=== PATIENT | female | born 1985 | race Caucasian/White ===

== ENCOUNTER 2018-02-12 21:45 | Outpatient (CLI) | payer OTHER ==
[2018-02-12 22:36] VITALS: BP 119/77; PULSE 93; RESP 16; TEMP 98.8
--- NOTE | 2018-03-03 09:35 | P.MSEPDOC ---
Presenting Problems - Arrival Data Date of Arrival on Unit: 02/12/18 Time of Arrival on Unit: 21:45 Mode of Transport: Ambulatory - Complaint OB-Reason for Admission/Chief Complaint: Possible Onset of Labor Comment: 1800 contractions every 2-6 minutes Medical History - Information : 4 Para: 3 Term: 3 : 0 Abortions: Spontaneous or Elective: 0 Number of Living Children: 3 - Gestational Age Gestational Age by JOHANNY (wks/days): 38 Weeks and 2 Days Review of Systems - Review of Systems Constitutional: No problems Breast: No problems ENT: No problems Cardiovascular: No problems Respiratory: No problems Gastrointestinal: No problems Genitourinary: No problems Musculoskeletal: No problems Neurological: No problems Skin: No problems Vital Signs - Temperature Temperature: 98.8 F Temperature Source: Temporal Artery Scan - Pulse Right Brachial Pulse Rate: 93 Pulse Assessment Method: Automatic Cuff - Respirations Respiratory Rate: 16 Oxygen Delivery Method: Room Air O2 Sat by Pulse Oximetry: 98 - Blood Pressure Right Arm Blood Pressure: 119/77 Blood Pressure Mean: 91 Blood Pressure Source: Automatic Cuff Medical Screen Scoring (Pre) - Cervical Exam Dilation: 1-3 cm = 1 Effacement: More than 50% = 2 Membranes: Intact - Uterine Contractions Frequency: > or = 36 weeks =2 Duration: N/A Intensity: N/A - Maternal Vital Signs Maternal Temperature: N/A Maternal Blood Pressure: N/A Signs of Preeclampsia: N/A - Pain Assessment Pain Location and Character: Abdomen Pain Scale Used: Numeric (1 - 10) Pain Intensity: 4 Pain Management Goal: 0 Pain Description: *Acute, Cramping Pain Radiation Location: no Pain Frequency: Intermittent Pain Duration: 4 Pain Duration Units: Hours Pain Behavior: Vocalization Pain Aggravating Factors: Contractions - Assessment Baseline FHR: 135 Heart Rate - NICHD Category: Category I (Normal) = 0 NST: Reactive - Total Score Total Score (Pre): 5 - Level of Risk Level of Risk: Low (0-5) Medical Screen Scoring (Post) - Cervical Exam Dilation: 1-3 cm = 1 Effacement: More than 50% = 2 Membranes: Intact - Uterine Contractions Frequency: > or = 36 weeks =2 Duration: N/A Intensity: N/A - Total Score Total Score (Post): 5 - Post Treatment Level of Risk Post Treatment Level of Risk: Low (0-5) Physician Notification (Post) - Physician Notified Physician Notified Date: 02/13/18 Physician Notified Time: 00:07 Spoke With: Timothy New Order Received: No - Notification Comment Comment: No cervical change after pt ambulaing in hallways, d/c home, follow up 02/14/[address] Ortega. Disposition - Disposition OB Disposition: Discharge to home, Written follow up instructions reviewed Discharge Date: 02/13/18 Discharge Time: 00:10 I agree with the RN Medical Screening Exam: Yes Risk & Benefit of care provided described in d/c instruction: Yes Diagnosis: FALSE LABOR AT OR AFTER 37 COMPLETED WEEKS OF GESTATION
== END 2018-02-13 00:10 | disposition home or self-care (01) ==
LOC: FBPOP 21:45
PROVIDERS: ATTEND Obstetrics & Gynecology Obstetrics
DX: O47.1 False labor at or after 37 completed weeks of gestation (principal); Z3A.38 38 weeks gestation of pregnancy
CPT/HCPCS: 59025; 99213

== ENCOUNTER 2018-02-20 06:00 | Inpatient (IN) | payer OTHER ==
[2018-02-20] MEDS ORDERED: OXYTOCIN 10 UNIT/ML 1 ML VIAL IM PRN (06:56)
[2018-02-20] MEDS ORDERED: LIDOCAINE 0.5% (PF) 5 MG/ML (50 ML SDV) SQ PRN (06:56)
[2018-02-20] MEDS ORDERED: METHYLERGONOVINE 0.2 MG/ML 1 ML AMP IM PRN (06:56)
[2018-02-20] MEDS ORDERED: TERBUTALINE 1 MG/ML VIAL SQ PRN (06:56)
[2018-02-20] MEDS ORDERED: CARBOPROST TROMETHAMINE 250 MCG/ML 1 ML AMP IM PRN (06:56)
[2018-02-20 07:13] LABS: Anisocytosis Slight; Basophils % (A) 1 %; Eosinophils # (A) 0.1 k/uL (0-0.7); Eosinophils % (A) 1 %; HCT 38.1 % (34.0-46.0); HGB 12.1 gm/dL (11.4-16.0); Lymphocytes # (A) 1.6 k/uL (1.0-4.8); Lymphocytes % (A) 25 %; MCH 30.8 pg (25.0-35.0); MCHC 31.7 g/dL (31.0-37.0); MCV 97.1 fL (80.0-100.0); Macrocytosis Slight; Mean Platelet Volume 8.4; Monocytes # (A) 0.6 k/uL (0-1.0); Monocytes % (A) 9 %; Neutrophils # (A) 3.9 k/uL (1.3-7.7); Neutrophils % (A) 61 %; Platelet Count 158 k/uL (150-450); RBC 3.93 m/uL (3.80-5.40); RDW 16.2 % (11.5-15.5); WBC 6.4 k/uL (3.8-10.6)
[2018-02-20 07:24] VITALS: BMI 28.6
[2018-02-20] MEDS: LACTATED RINGERS 1,000 ML IV SCH ×4 (07:26→23:57)
[2018-02-20] MEDS: OXYTOCIN 20 UNITS/1000 ML NS 1,000 ML IV SCH ×2 (07:40→21:48)
[2018-02-20] MEDS ORDERED: BUTORPHANOL 1 MG/ML 1 ML VIAL IV PRN (08:41)
--- NOTE | 2018-02-20 08:46 | P.HPOB ---
History of Present Illness H&P Date: 02/20/18 Chief Complaint: 39+ weeks, favorable cervix, elective induction The patient is a 32-year-old 4 para 3003 admitted at 39-3/7 weeks as established by last menstrual period and confirmed by 8 week ultrasound. She is admitted for elective induction with all signs reassuring and a favorable cervix. Her has been entirely uncomplicated and group B strep status is negative. She does have a relatively large for gestational age fetus based upon a roughly 36 week ultrasound at which time the infant was at approximately the 93rd percentile. Obstetrical history: 4 para 3003 with 3 term vaginal deliveries without complications. Current statistics are listed in history present illness. EDC of 02/24/2018 was established by last menstrual period and confirmed by 8 week ultrasound. Laboratory workup demonstrates a blood type of AB+ with a negative antibody screen. Rubella status is immune. Remainder of the laboratory workup was within normal limits. One hour Glucola was normal and group B strep status is negative. Gynecologic history: Unremarkable with no history of infections to include STDs. Review of Systems Review of systems is confined to history of present illness. Past Medical History Past Medical History: Supraventricular Tachycardia (SVT) Additional Past Medical History / Comment(s): pt states she has had 3 attacks of SVT in last ten years History of Any Multi-Drug Resistant Organisms: None Reported Past Surgical History: Tonsillectomy Past Anesthesia/Blood Transfusion Reactions: No Reported Reaction Past Psychological History: No Psychological Hx Reported Smoking Status: Never smoker Past Alcohol Use History: None Reported Past Drug Use History: None Reported - Past Family History Mother Family Medical History: No Reported History Medications and Allergies Home Medications Medication Instructions Recorded Confirmed Type Ferrous Sulfate, Dried [Iron] 1 tab PO ONCE 02/12/18 02/20/18 History Pnv No.95/Ferrous Fum/Folic AC 1 tab PO ONCE 02/12/18 02/20/18 History [ Multivitamin Tablet] Ranitidine HCl [Zantac] 1 tab PO ONCE 02/12/18 02/20/18 History Allergies Allergy/AdvReac Type Severity Reaction Status Date / Time adhesive tape Allergy Rash/Hives Verified 02/20/18 06:55 Exam Vital Signs Temp Pulse Resp BP 02/20/18 06:55 96.9 F L 83 14 110/74 Intake and Output 02/19/18 02/20/1802/20/18 22:59 06:59 14:59 Other: Weight 75.75 kg In general, this is a well-developed, well-nourished white female in no acute distress. Her heart has a regular rhythm and rate without murmur. Her lungs are clear to auscultation bilaterally in all [place]. Her abdomen is gravid, nondistended, has normal active bowel sounds, is soft, nontender, and without any palpable masses aside from uterine fundus. Her extremities are without any cyanosis, clubbing, or significant edema and are nontender to palpation bilaterally. Digital cervical examination on straights her surgery 3 cm dilated , 50% effaced, the vertex in presentation at -3 station. Artificial rupture of membranes is carried out demonstrating clear fluid. Results Result Diagrams: 02/20/18 07:00 Abnormal Lab Results - Last 24 Hours (Table) 02/20/18 Range/Units 07:00 RDW 16.2 H (11.5-15.5) % Assessment and Plan (1) 39 weeks gestation of Current Visit: Yes Status: Acute Code(s): Z3A.39 - 39 WEEKS GESTATION OF SNOMED Code(s): 75845840 Plan: The patient has been admitted for elective induction of labor with a favorable cervix after 39 weeks. She has had Pitocin augmentation started and artificial rupture of membranes carried out. She will have close maternal and surveillance and expectant management will be practiced. She is a good candidate for either IV or epidural analgesia, whichever she may choose.
[2018-02-20] MEDS ORDERED: ROPIVACAINE 5MG/ML 20ML VIAL ONE (11:26)
[2018-02-20] MEDS ORDERED: SODIUM CHLORIDE 0.9% 100 ML BAG ONE (11:26)
[2018-02-20] MEDS ORDERED: fentaNYL (PF) 50 MCG/ML 5 ML AMP ONE (11:26)
[2018-02-20] MEDS ORDERED: KETOROLAC 30 MG/ML 1 ML VIAL ONE (18:21)
[2018-02-20] MEDS ORDERED: PHENYLEPHRINE-0.9% NACL SYG 1 MG/10 ML SYRINGE ONE (18:21)
[2018-02-20] MEDS ORDERED: ONDANSETRON 4 MG/2 ML VIAL ONE (18:21)
[2018-02-20] MEDS ORDERED: OXYTOCIN 10 UNIT/ML 1 ML VIAL ONE (18:21)
[2018-02-20] MEDS ORDERED: SIMETHICONE 80 MG CHEWABLE PO PRN (19:16)
[2018-02-20] MEDS ORDERED: ZOLPIDEM 5 MG TAB PO PRN (19:16)
[2018-02-20] MEDS ORDERED: diphenhydrAMINE 50 MG/ML 1 ML VIAL IVP PRN ×2 (19:16)
[2018-02-20] MEDS ORDERED: ONDANSETRON 4 MG/2 ML VIAL IVP PRN (19:16)
[2018-02-20] MEDS ORDERED: diphenhydrAMINE 25 MG CAP PO PRN (19:16)
[2018-02-20] MEDS ORDERED: METOCLOPRAMIDE 5 MG/ML 2 ML VIAL IVP PRN (19:16)
[2018-02-20] MEDS ORDERED: ACETAMINOPHEN TAB 325 MG TAB PO PRN (19:16)
[2018-02-20] MEDS ORDERED: LANOLIN CREAM 5 GM TUBE TOPICAL PRN (19:16)
[2018-02-20] MEDS ORDERED: diphenhydrAMINE 50 MG CAP PO PRN (19:16)
[2018-02-20] MEDS ORDERED: NALOXONE 0.4 MG/ML 1 ML VIAL IV PRN ×2 (19:16→19:38)
--- NOTE | 2018-02-20 19:26 | P.OP ---
Date of Procedure: 02/20/18 Preoperative Diagnosis: #1. 39-3/7 weeks, suspected macrosomia #2. Arrest of dilation and descent #3. Suspected malposition Postoperative Diagnosis: Same plus #4. Left occiput posterior position Procedure(s) Performed: Primary low-transverse section Anesthesia: spinal Surgeon: Ubaldo Ortega Health Inspector Food #1: Janet Gifford Estimated Blood Loss (ml): 700 IV fluids (ml): 1,000 Urine output (ml): 200 Pathology: none sent Condition: stable Disposition: floor Operative Findings: Preoperatively, the patient had remained at rim dilation for approximately 4-5 hours with no descent below approximately -1 station. The position was felt to be occiput posterior and attempts to push past the remaining cervix were unsuccessful. Ultimately, the decision was made to proceed to the operating room where a primary low transverse section was carried out. She was delivered of a viable 9 lbs. 8 oz. baby boy with Apgars of 8 at 1 minute and 9 at 5 minutes delivered in the left occiput posterior position. The placenta was delivered manually, intact, and grossly normal with a grossly normal three-vessel cord. The uterus, tubes, and ovaries were entirely normal to inspection the lower uterine segment was very soft and easily torn. Description of Procedure: The patient was prepped and draped in usual fashion after spinal anesthesia was administered by the anesthesiologist. A Pfannenstiel incision was made and extended into the abdominal cavity without difficulty. The bladder peritoneum was elevated, incised, and reflected distally. A 2 cm incision was made in the lower uterine segment to enter the uterus at which time clear fluid was further noted. The incision was extended in both directions using the bandage scissors. The head was encountered deep within the pelvis in the left occiput posterior position. It was elevated up and through the incision where the nose and mouth were thoroughly suctioned. The cord was doubly clamped, cut , and the infant passed resuscitative measures with weight and Apgars as noted above. The placenta was delivered manually and intact as noted above. The uterus was exteriorized and the interior cavity of the uterus swept of any remaining placental or membranous fragments. The margins of the incision were grasped with Pratt clamps and it was noted to of extended to some extent in both corners. The incision was closed in 2 layers, the first layer being a running locking stitch of 0 chromic catgut from margin to margin followed by a running imbricating layer of 0 chromic catgut from margin to margin. There was some ongoing bleeding at the left angle of the incision which was made hemostatic with 2 [id number] stitches of 0 chromic catgut. There also appeared to be a small hematoma forming at the right angle above the incision which was also made hemostatic with a wide [id number] stitch of 0 chromic catgut. Following this, hemostasis appeared to be excellent. The posterior cul -de-sac was suctioned using a guard and the uterine and ovarian findings were normal as noted above. The uterus was replaced within the abdominal cavity and the gutters swept of any remaining blood, fluid, or clot. The incision was reexamined and noted to be hemostatic. The bladder peritoneum was loosely reapproximated as was the parietal peritoneum. The layer of muscles was examined and found to be hemostatic. The fascia was closed with 2 running stitches of 0 Vicryl proceeding from lateral margins to the midpoint. The subcutaneous tissues were irrigated, made hemostatic with the Bovie, and not closed with a stitch as they were less than 2 cm in depth. The skin was reapproximated with a running subcuticular stitch of 4-0 Vicryl proceeding from margin to margin followed by half-inch Steri-Strips placed with Mastisol. Estimated blood loss for the case was approximate 700 mL. There were no complications. All sponge, instrument, and needle counts were correct. Both mother and are resting comfortably in recovery.
[2018-02-20] MEDS ORDERED: OXYTOCIN 20 UNITS/1000 ML NS 1,000 ML IV SCH (19:30)
[2018-02-20] MEDS ORDERED: NALBUPHINE 10 MG/ML VIAL (10ML MDV) IV PRN (19:38)
[2018-02-20] MEDS ORDERED: HYDROmorphone 0.5 MG/0.5 ML SYRINGE IVP PRN (19:38)
[2018-02-20] MEDS ORDERED: PRENATAL VIT-IRON-FOLIC ACID 1 EACH CAP PO ONE (19:45)
[2018-02-20] MEDS ORDERED: FERROUS SULFATE 325 MG TAB PO ONE (19:45)
[2018-02-20] MEDS ORDERED: FAMOTIDINE 20 MG TAB PO ONE (19:45)
[2018-02-20] MEDS ORDERED: HYDROmorphone 1 MG/ML 1 ML SYRINGE IVP PRN (19:47)
[2018-02-20] MEDS: SENNOSIDES-DOCUSATE SODIUM 1 EACH TAB PO SCH (20:47)
[2018-02-20] MEDS: KETOROLAC 30 MG/ML 1 ML VIAL IVP PRN (22:35)
[2018-02-21] MEDS: LACTATED RINGERS 1,000 ML IV SCH ×3 (04:11→22:27)
[2018-02-21] MEDS: KETOROLAC 30 MG/ML 1 ML VIAL IVP PRN ×3 (07:08→18:28)
--- NOTE | 2018-02-21 08:53 | P.PNOBGPC ---
Subjective - Subjective Patient reports: Reports appetite normal, Reports voiding normally, Reports pain well controlled, Reports ambulating normally : doing well Objective - Vital Signs Latest vital signs: Vital Signs Temp Pulse Resp BP Pulse Ox 02/21/18 08:00 98.2 F 74 16 101/64 99 02/21/18 06:00 16 02/21/18 04:00 98.4 F 78 16 101/65 98 02/21/18 02:00 16 02/20/18 23:55 98 02/20/18 23:49 97.9 F 80 16 109/65 02/20/18 22:38 16 02/20/18 22:00 86 112/70 02/20/18 21:20 86 16 112/60 99 02/20/18 20:48 100 16 107/60 98 02/20/18 20:31 16 98 02/20/18 20:18 97.5 F L 95 16 121/60 98 02/20/18 20:05 97.8 F 95 16 99/58 98 02/20/18 19:50 77 16 99/65 100 02/20/18 19:38 16 100 02/20/18 19:31 97.0 F L 16 100/61 100 02/20/18 19:20 98.8 F 79 16 91/55 100 Intake and Output 02/20/18 02/21/18 02/21/18 22:59 06:59 14:59 Intake Total 1042.4 500 Output Total 1000 1000 Balance 42.4 -500 Intake: IV 1000 500 Oxytocin 20 Units/1000 ml 500 Ns 1,000 ml @ 1 MILLIUNIT/MIN 3 mls/hr IV .Q24H WARREN Rx#:[id number] Intake, IV Titration 42.4 Amount Oxytocin 20 Units/1000 ml 42.4 Ns 1,000 ml @ 1 MILLIUNIT/MIN 3 mls/hr IV .Q24H WARREN Rx#:[id number] Output: Urine 1000 1000 Uretheral (Betancourt) 500 Other: Voiding Method Indwelling Catheter Indwelling Catheter # Voids 1 - Exam Extremities: Present: normal Abdomen: Present: normal appearance, soft. Absent: distention, tenderness Incision: Present: normal, dry, intact Uterus: Present: normal, firm (The uterine fundus as tonic and nontender just above the umbilicus.) Assessment and Plan (1) 39 weeks gestation of Current Visit: Yes Status: Acute Code(s): Z3A.39 - 39 WEEKS GESTATION OF SNOMED Code(s): 85203842 (2) Arrest of dilation, delivered, current hospitalization Current Visit: Yes Status: Acute Code(s): O62.1 - SECONDARY UTERINE INERTIA SNOMED Code(s): 55271602 (3) Arrest of descent, delivered, current hospitalization Current Visit: Yes Status: Acute Code(s): O62.1 - SECONDARY UTERINE INERTIA SNOMED Code(s): 77790701 (4) Status post section Current Visit: Yes Status: Acute Code(s): Z98.891 - HISTORY OF UTERINE SCAR FROM PREVIOUS SURGERY SNOMED Code(s): 637577631 Plan: Continue routine post operative care. I have encouraged patient to ambulating in the halls routinely. She is otherwise performing all activities of daily living at this time. Possible discharge home tomorrow pending any problems or complications.
[2018-02-21 09:33] LABS: Anisocytosis Slight; Basophils % (A) 0 %; Eosinophils # (A) 0.1 k/uL (0-0.7); Eosinophils % (A) 1 %; HCT 28.9 % (34.0-46.0); Lymphocytes # (A) 1.1 k/uL (1.0-4.8); Lymphocytes % (A) 9 %; MCH 31.7 pg (25.0-35.0); MCHC 32.5 g/dL (31.0-37.0); MCV 97.5 fL (80.0-100.0); Macrocytosis Slight; Mean Platelet Volume 8.3; Monocytes # (A) 0.6 k/uL (0-1.0); Monocytes % (A) 4 %; Neutrophils # (A) 11.2 k/uL (1.3-7.7); Neutrophils % (A) 85 %; Platelet Count 151 k/uL (150-450); RBC 2.97 m/uL (3.80-5.40); RDW 16.1 % (11.5-15.5); WBC 13.1 k/uL (3.8-10.6)
[2018-02-21 09:43] LABS: HGB 9.4 gm/dL (11.4-16.0)
[2018-02-21] MEDS: SENNOSIDES-DOCUSATE SODIUM 1 EACH TAB PO SCH ×2 (11:13→19:59)
--- NOTE | 2018-02-21 14:11 | P.PN ---
Progress Note - Text 02/21 740am 32 yr old female s/p csection.pod #1 .vas of 4, c/o mild nausea and pruritis. feeling better today.
[2018-02-21] MEDS: HYDROcodone/APAP 5-325MG 1 EACH TAB PO PRN (21:37)
[2018-02-21 22:25] VITALS: RESP 16
[2018-02-22] MEDS: IBUPROFEN 600 MG TAB PO PRN ×4 (00:26→18:40)
[2018-02-22] MEDS: HYDROcodone/APAP 5-325MG 1 EACH TAB PO PRN (03:33)
--- NOTE | 2018-02-22 08:28 | P.PNOBGPC ---
Subjective - Subjective Patient reports: Reports appetite normal, Reports voiding normally, Reports pain well controlled, Reports ambulating normally : doing well Objective - Vital Signs Latest vital signs: Vital Signs Temp Pulse Resp BP Pulse Ox 02/22/18 00:00 97.7 F 95 16 108/66 02/21/18 20:00 98.6 F 96 16 106/59 02/21/18 16:00 97.9 F 82 14 101/60 02/21/18 14:00 98.1 F 84 14 89/53 98 02/21/18 10:00 97.9 F 68 14 103/53 Intake and Output 02/21/18 02/22/18 02/22/18 22:59 06:59 14:59 Other: # Voids 1 - Exam Extremities: Present: normal Abdomen: Present: normal appearance, soft. Absent: distention, tenderness Incision: Present: normal, dry, intact Uterus: Present: normal, firm (The uterine fundus as tonic and nontender at the umbilicus.) - Labs Labs: Abnormal Lab Results - Last 24 Hours (Table) 02/21/18 Range/Units 08:46 WBC 13.1 H (3.8-10.6) k/uL RBC 2.97 L (3.80-5.40) m/uL Hgb 9.4 L D (11.4-16.0) gm/dL Hct 28.9 L (34.0-46.0) % RDW 16.1 H (11.5-15.5) % Neutrophils # 11.2 H (1.3-7.7) k/uL Assessment and Plan (1) 39 weeks gestation of Current Visit: Yes Status: Acute Code(s): Z3A.39 - 39 WEEKS GESTATION OF SNOMED Code(s): 74798973 (2) Arrest of dilation, delivered, current hospitalization Current Visit: Yes Status: Acute Code(s): O62.1 - SECONDARY UTERINE INERTIA SNOMED Code(s): 28758714 (3) Arrest of descent, delivered, current hospitalization Current Visit: Yes Status: Acute Code(s): O62.1 - SECONDARY UTERINE INERTIA SNOMED Code(s): 80279980 (4) Status post section Current Visit: Yes Status: Acute Code(s): Z98.891 - HISTORY OF UTERINE SCAR FROM PREVIOUS SURGERY SNOMED Code(s): 909967039 Plan: Continue routine postoperative care. The patient has requested to remain in the hospital another day and will likely be discharged home tomorrow. Again I have encouraged her to amulet in the hallways at least 4 times daily.
[2018-02-22] MEDS: SENNOSIDES-DOCUSATE SODIUM 1 EACH TAB PO SCH ×2 (09:42→20:41)
[2018-02-22] MEDS: HYDROcodone/APAP 7.5-325MG 1 EACH TAB PO PRN ×3 (09:43→20:41)
[2018-02-23] MEDS: IBUPROFEN 600 MG TAB PO PRN ×2 (02:15→07:47)
[2018-02-23] MEDS: HYDROcodone/APAP 7.5-325MG 1 EACH TAB PO PRN ×2 (05:00→12:16)
[2018-02-23] MEDS: SENNOSIDES-DOCUSATE SODIUM 1 EACH TAB PO SCH (07:47)
[2018-02-23 09:34] VITALS: BP 112/68; PULSE 82; TEMP 98.2
--- NOTE | 2018-02-23 11:03 | P.DS ---
Providers Date of admission: 02/20/18 06:48 Expected date of discharge: 02/23/18 Attending physician: Ubaldo Ortega Primary care physician: Stated None - Discharge Diagnosis(es) (1) 39 weeks gestation of Current Visit: Yes Status: Acute (2) Arrest of dilation, delivered, current hospitalization Current Visit: Yes Status: Acute (3) Arrest of descent, delivered, current hospitalization Current Visit: Yes Status: Acute (4) Status post section Current Visit: Yes Status: Acute Hospital Course: The patient is a 32-year-old 4 para 3003 admitted at 39-3/7 weeks by good dating parameters for an elective induction with all signs reassuring and a very favorable cervix. Her was uncomplicated and group B strep status is negative. She was known to have a large for gestational age fetus based upon late third trimester ultrasound. On labor and delivery, she had Pitocin augmentation started and underwent artificial rupture of membranes for clear fluid. She made progress and had an epidural catheter placed for analgesia. She continued to progress until she reached approximately 9 cm to a rim dilation. She remained at that dilation for approximately 4-5 hours and was unable to push past the cervix or bring the fetus any lower than approximately 0 station. The fetus was thought to be in an occiput posterior position. Given all these findings, the patient was counseled and taken the operating room for a primary low transverse section where she was delivered of a viable 9 lbs. 8 oz. baby boy with Apgars of 8 at 1 minute and 9 at 5 minutes delivered in the occiput posterior position. Her postoperative course was unremarkable with vital signs remaining stable and her temperature was afebrile throughout. She was deemed stable for discharge on postoperative day #3 was discharged home to follow-up in the office in 2 weeks for an incision check and 6 weeks routinely. Discharge instructions included calling for any significantly increased bleeding or foul-smelling lochia, significantly increased fever abdominal pain, perineal complaints, breast complaints, incisional complaints, or anything else that concerned her. She was additionally instructed to have nothing in the vagina for at least 6 weeks time to include intercourse and to abstain from any heavy lifting over the same period of time. She was last instructed to do no driving until off of all pain medications or 2 weeks' time, whichever came first. She understood her instructions and agrees to follow up as noted above. Discharge medications included continued vitamins as she has opted to breast-feed as well as a prescription for [place] 5/325 mg 1-2 by mouth every 6 hours when necessary pain , #20 dispensed with no refills. Maternal blood type is AB+ and rubella status is immune. Discharge hemoglobin and hematocrit were 9.4 and 28.9 respectively. Procedures: #1. Pitocin induction #2. Artificial rupture of membranes #3. Epidural analgesia #4. Primary low-transverse section Patient Condition at Discharge: Stable Plan - Discharge Summary New Discharge Prescriptions: No Action Ranitidine HCl [Zantac] 1 tab PO ONCE Pnv No.95/Ferrous Fum/Folic AC [ Multivitamin Tablet] 1 tab PO ONCE Ferrous Sulfate, Dried [Iron] 1 tab PO ONCE Discharge Medication List Ferrous Sulfate, Dried [Iron] 1 tab PO ONCE 02/12/18 [History] Pnv No.95/Ferrous Fum/Folic AC [ Multivitamin Tablet] 1 tab PO ONCE 03/22 [History] Ranitidine HCl [Zantac] 1 tab PO ONCE 02/12/18 [History] Follow up Appointment(s)/Referral(s): Ubaldo Ortega MD [STAFF PHYSICIAN] - 2 Weeks Discharge Disposition: HOME SELF-CARE
== END 2018-02-23 14:55 | disposition home or self-care (01) | DRG 766 ==
LOC: 4FBP 06:48
PROVIDERS: ADMIT Obstetrics & Gynecology; ATTEND Obstetrics & Gynecology
PROC: 3E033VJ Introduction of Other Hormone into Peripheral Vein, Percutaneous Approach (ICD-10-PCS; 2018-02-20)
PROC: 10907ZC Drainage of Amniotic Fluid, Therapeutic from Products of Conception, Via Natural or Artificial Opening (ICD-10-PCS; 2018-02-20)
PROC: 00HU33Z Insertion of Infusion Device into Spinal Canal, Percutaneous Approach (ICD-10-PCS; 2018-02-20)
PROC: 3E0R3BZ Introduction of Anesthetic Agent into Spinal Canal, Percutaneous Approach (ICD-10-PCS; 2018-02-20)
PROC: 10D00Z1 Extraction of Products of Conception, Low, Open Approach (ICD-10-PCS; principal; 2018-02-20 18:35)
DX: O66.2 Obstructed labor due to unusually large fetus (principal); O64.0XX0 Obstructed labor due to incomplete rotation of fetal head, not applicable or unspecified; O62.0 Primary inadequate contractions; O62.1 Secondary uterine inertia; L29.9 Pruritus, unspecified; Z3A.39 39 weeks gestation of pregnancy; Z37.0 Single live birth; Z79.899 Other long term (current) drug therapy; Z86.79 Personal history of other diseases of the circulatory system
CPT/HCPCS: 85025

== ENCOUNTER 2018-08-09 12:05 | Emergency (ER) | payer OTHER ==
[2018-08-09 12:26] VITALS: TEMP 98.7
--- NOTE | 2018-08-09 12:57 | ED ---
Head Injury HPI - General Chief complaint: Head Injury Stated complaint: HEAD INJURY Time Seen by Provider: 08/09/18 12:27 Source: patient Mode of arrival: ambulatory Limitations: no limitations - History of Present Illness Initial comments: 33-year-old female with past medical history of SVT status post ablation presenting today for chief complaint of head injury. Patient states yesterday evening she had her head, she states his right aspect of her forehead. She denies loss of consciousness. She states she was turning her head and hit somebody shelving. Patient denies laceration. She states she really had a headache and felt slightly dizzy. Patient states she has had on-and-off nausea but no vomiting. Patient states she checked her pupils which appeared normal. The patient states this morning she had sensation deficit on the right side of her face she says she is able to feel however it feels different the left. Patient states her face feels slightly swollen. Patient has small area of ecchymosis surrounding an abrasion.patient denies any muscle weakness speech changes gait chances, diplopia, dizziness, facial droop, memory changes, fever, chills, neck pain, shortness of breath, chest pain, back pain, abdominal pain, numbness or tingling, dysuria or hematuria, constipation or diarrhea, or any other complaints . - Related Data Home Medications Medication Instructions Recorded Confirmed Multivitamins, Thera [Multivitamin 1 tab PO DAILY 08/09/18 08/09/18 (formulary)] Previous Rx's Medication Instructions Recorded predniSONE 20 mg PO DAILY 5 Days #5 tab 08/09/18 Allergies/Adverse reactions: Allergies Allergy/AdvReac Type Severity Reaction Status Date / Time adhesive tape Allergy Rash/Hives Verified 08/09/18 12:43 Review of Systems ROS Statement: Those systems with pertinent positive or pertinent negative responses have been documented in the HPI. ROS Other: All systems not noted in ROS Statement are negative. Past Medical History Past Medical History: Supraventricular Tachycardia (SVT) Additional Past Medical History / Comment(s): pt states she has had 3 attacks of SVT in last ten years History of Any Multi-Drug Resistant Organisms: None Reported Past Surgical History: Section, Tonsillectomy Additional Past Surgical History / Comment(s): cardiac ablation Past Anesthesia/Blood Transfusion Reactions: No Reported Reaction Past Psychological History: No Psychological Hx Reported Smoking Status: Never smoker Past Alcohol Use History: None Reported Past Drug Use History: None Reported - Past Family History Mother Family Medical History: No Reported History General Exam - General Exam Comments Initial Comments: General: The patient is awake and alert, in no distress, and does not appear acutely ill. Eye: Pupils are equal, round and reactive to light, extra-ocular movements are intact. No nystagmus. There is normal conjunctiva bilaterally. No signs of icterus. Ears, nose, mouth and throat: There are moist mucous membranes and no oral lesions. Slight facial swelling of right side of face. No orbit swelling. Portillo or raccoon sign. Neck: The neck is supple, there is no tenderness or JVD. Cardiovascular: There is a regular rate and rhythm. No murmur, rub or gallop is appreciated. Respiratory: Lungs are clear to auscultation, respirations are non-labored, breath sounds are equal. No wheezes, stridor, rales, or rhonchi. Gastrointestinal: Soft, non-distended, non-tender abdomen without masses or organomegaly noted. There is no rebound or guarding present. No CVA tenderness. Bowel sounds are unremarkable. Musculoskeletal: Normal ROM, no tenderness. Strength 5/5. Sensation intact. Pulses equal bilaterally 2+. Neurological: A&O x 3. CN II-XII intact, memory intact to immediately, intermediate and correction recall. Able to follow simple verbal. Able to name a common object (pen). High quality, labial (pa) and lingual (la) speech. Low quality posterior pharynx/larynx (ga) voice sounds. Able to express general knowledge (days in a week). No hemineglect or inattention noted. Finger agnosia (-) and spatially oriented (identified L index finger touched R shoulder with L index finger).Light touch and temperature sensation present over the face, chest, abdomen, back, UE bilaterally, and LE bilaterally. Able to localize point during point localization b/l and extinction. No visible bulk atrophy, hypertrophy, fasciculations, or myoclonus of the UE or LE b/l. Full PROM in UE and LE b/l. Bilateral muscle strength 5/5 for the following muscles: deltoid, biceps, triceps, brachioradialis, wrist extensors/flexor, hip flexor, hip ab ductors/adductors, hamstrings, quadriceps, feet dorsiflexors/plantar flexors. Finger to nose, finger to the examiners finger, and heel to yeboah coordinated and accurate b/l. Coordinated and even demonstration of hand flip, finger to thumb, and toe tap b/l. Gait is coordinated and even in stride with tandem, toe and heel walk. Maintains balance with monopedal stance. (-) Romberg. (-) pronator drift. No nuchal rigidity. (-) Brudzinskis and Kernig signs. Skin: Skin is warm and dry and no rashes or lesions are noted. Superifical <.5cm abrasion right side of forehead with mildvery faint ecchymosis Psychiatric: Cooperative, appropriate mood & affect, normal judgment. Limitations: no limitations Course Vital Signs 08/09/18 08/09/18 12:23 13:48 Temperature 98.7 F Pulse Rate 112 H 85 Respiratory 20 18 Rate Blood Pressure 130/78 121/83 O2 Sat by Pulse 97 100 Oximetry Medical Decision Making - Medical Decision Making 33-year-old female with hx of head injury. No focal neurological deficits on examination.Mild facial sweling. Patient struck right side of forehead, I feel this is in the distribution of the facial nerve. Possible facial nerve irritation. CT negative for acute intracranial process. I did discuss cerebellar tonsils lying low incidental finding with patient. Verbalized understanding. At this time I had patient evaluated by attending provider, Dr Reddy we recommend discharge without outpatient follow-up with neurol ogy.term parameters were discussed at length with patient who verbalized understanding. Patient denies questions at this time. discharged appearing well - Lab Data Lab Results 08/09/18 Range/Units 12:40 Urine HCG, Qual Not Detected (Not Detectd) Disposition Clinical Impression: Head injury, Concussion Disposition: HOME SELF-CARE Condition: Good Instructions (If sedation given, give patient instructions): Concussion (ED) Additional Instructions: Please use medication as discussed. Please follow-up with family doctor in the next 2 days. No contact sports until PCP clearance. Please follow-up wit neurologist as discussed Please return to emergency room if the symptoms increase or worsen or for any other concerns. Prescriptions: predniSONE 20 mg PO DAILY 5 Days #5 tab Is patient prescribed a controlled substance at d/c from ED?: No Referrals: Luanne Anand MD [Primary Care Provider] - 1-2 days Jennifer Nelson MD [STAFF PHYSICIAN] - 1-2 days Time of Disposition: 14:05
--- NOTE | 2018-08-09 13:24 | CT ---
EXAMINATION TYPE: CT brain wo con DATE OF EXAM: 08/09/2018 COMPARISON: None HISTORY: Head injury CT DLP: 1060.4 mGycm. Automated Exposure Control for Dose Reduction was Utilized. TECHNIQUE: CT scan of the head is performed without contrast. FINDINGS: There is no acute intracranial hemorrhage, mass effect, or midline shift identified. The ventricles and sulci are within normal limits in size. The globes are intact and the visualized sin uses are clear. Cerebellar tonsils low-lying in position without evidence of tonsillar beaking. IMPRESSION: No acute intracranial hemorrhage, mass effect, or midline shift is seen. Cerebellar tons ils are low-lying in position and could be correlated with MRI in a short-term basis.
[2018-08-09 13:49] VITALS: BP 121/83; PULSE 85; RESP 18
== END 2018-08-09 14:20 | disposition home or self-care (01) ==
LOC: EC 12:05
DX: S06.0X0A Concussion without loss of consciousness, initial encounter (principal); S00.83XA Contusion of other part of head, initial encounter; Z91.09 Other allergy status, other than to drugs and biological substances; Z86.79 Personal history of other diseases of the circulatory system; Z98.890 Other specified postprocedural states; W22.8XXA Striking against or struck by other objects, initial encounter; Y93.89 Activity, other specified
CPT/HCPCS: 70450; 81025; 99284

== ENCOUNTER 2018-10-18 20:02 | Observation (INO) | payer OTHER ==
[2018-10-18] MEDS ORDERED: ASPIRIN 81 MG PO STA (20:41)
[2018-10-18] MEDS ORDERED: SODIUM CHLORIDE 0.9% 1,000 ML IV STA (20:41)
[2018-10-18 21:05] LABS: Appearance,Urine Clear (Clear); Bacteria,Urine Moderate /hpf; Bilirubin,Urine Negative (Negative); Blood,Urine Negative (Negative); Color,Urine Light Yellow; Glucose,Urine (UA) Negative (Negative); Ketones,Urine Negative (Negative); Leukocyte Esterase,Urine Small (Negative); Mucus,Urine Rare /hpf; Nitrite,Urine Negative (Negative); Protein,Urine Negative (Negative); RBC,Urine 1 /hpf (0-5); Specific Gravity,Urine 1.007 (1.001-1.035); Squamous Epithelial Cell,Urine 1 /hpf (0-4); Urobilinogen,Urine <2.0 mg/dL (<2.0); WBC,Urine 3 /hpf (0-5)
[2018-10-18 21:07] LABS: Basophils # (A) 0.1 k/uL (0-0.2); Basophils % (A) 1 %; Eosinophils # (A) 0.1 k/uL (0-0.7); Eosinophils % (A) 1 %; HCT 39.3 % (34.0-46.0); HGB 12.7 gm/dL (11.4-16.0); Lymphocytes # (A) 1.8 k/uL (1.0-4.8); Lymphocytes % (A) 20 %; MCH 30.3 pg (25.0-35.0); MCHC 32.3 g/dL (31.0-37.0); MCV 93.9 fL (80.0-100.0); Mean Platelet Volume 7.4; Monocytes # (A) 0.6 k/uL (0-1.0); Monocytes % (A) 6 %; Neutrophils # (A) 6.6 k/uL (1.3-7.7); Neutrophils % (A) 71 %; Platelet Count 257 k/uL (150-450); RBC 4.19 m/uL (3.80-5.40); RDW 13.1 % (11.5-15.5); WBC 9.3 k/uL (3.8-10.6)
[2018-10-18 21:23] LABS: ALT 12 U/L (9-52); AST 23 U/L (14-36); Albumin 4.6 g/dL (3.5-5.0); Alkaline Phosphatase 56 U/L (38-126); Amylase 67 U/L (30-110); Anion Gap 7 mmol/L; Blood Urea Nitrogen 12 mg/dL (7-17); Calcium 9.9 mg/dL (8.4-10.2); Carbon Dioxide 28 mmol/L (22-30); Chloride 105 mmol/L (98-107); Glucose 78 mg/dL (74-99); Magnesium 2.1 mg/dL (1.6-2.3); Potassium 4.3 mmol/L (3.5-5.1); Sodium 140 mmol/L (137-145); Total Bilirubin 0.3 mg/dL (0.2-1.3); Total Protein 7.4 g/dL (6.3-8.2)
--- NOTE | 2018-10-18 21:26 | XR ---
EXAMINATION TYPE: XR chest 2V DATE OF EXAM: 10/18/2018 COMPARISON: 10/10/2015 HISTORY: Chest pain TECHNIQUE: Frontal and lateral views of the chest are obtained. FINDINGS: Heart and mediastinum are normal. Lungs are clear. Diaphragm is normal. Bony thorax appear s normal. There are chest leads. IMPRESSION: Normal chest. No change.
[2018-10-18 21:31] LABS: D-Dimer <0.17 mg/L FEU (<0.60); INR 0.9 (<1.2); Partial Thromboplastin Time 24.8 sec (22.0-30.0); Prothrombin Time 9.7 sec (9.0-12.0)
[2018-10-18] MEDS ORDERED: AMOXIC-POT CLAV 875-125MG 1 EACH TAB PO STA (22:12)
--- NOTE | 2018-10-18 22:14 | ED ---
General Adult HPI - General Chief complaint: Chest Pain Stated complaint: chest pain Time Seen by Provider: 10/18/18 20:38 Source: patient, RN notes reviewed, old records reviewed Mode of arrival: ambulatory Limitations: no limitations - History of Present Illness Initial comments: 33-year-old female patient with past history of SVT status post ablation thousand 16 presents ED for chief complaint of waxing and waning heart palpitations for 2 days as well as some chest pain which began approximately 1.5 hours prior to presentation. Patient describes the pain as a sharp pleuritic pain in her L breast region. She also has separate complaint of approximately 2 weeks of sinus congestion, sinus pressure maxillary sinus. Patient denies any shortness of breath abdominal pain nausea vomiting diarrhea, states that she is not . Denies other complaints. Systemic: Pt denies fatigue, myalgia, fever/chills, rash. Pt denies weakness, night sweats, weight loss. Neuro: Pt denies headache, visual disturbances, syncope or pre-syncope. HEENT: Pt denies ocular discharge or irritation, otalgia, rhinorrhea, pharyngitis or notable lymphadenopathy. Cardiopulmonary: Pt denies chest pain, SOB, heart palpitations, dyspnea on exertion. Abdominal/GI: Pt denies abdominal pain, n/v/d. : Pt denies dysuria, burning w/ urination, frequency/urgency. Denies new onset urinary or bowel incontinence. MSK: Pt denies myalgia, loss of strength or function in extremities. Neuro: Pt denies new onset weakness, paresthesias. - Related Data Home Medications Medication Instructions Recorded Confirmed Multivitamins, Thera [Multivitamin 1 tab PO DAILY 08/09/18 10/18/18 (formulary)] Fluticasone Nasal [place] [Flonase 2 spr EA NOSTRIL DAILY 10/18/18 10/18/18 Nasal [place]] Previous Rx's Medication Instructions Recorded Amoxicillin/Potassium Clav 1 each PO Q12HR #20 tab 10/18/18 [Augmentin 875-125 Tablet] Allergies Allergy/AdvReac Type Severity Reaction Status Date / Time adhesive tape Allergy Rash/Hives Verified 10/18/18 20:48 Review of Systems ROS Statement: Those systems with pertinent positive or pertinent negative responses have been documented in the HPI. ROS Other: All systems not noted in ROS Statement are negative. Past Medical History Past Medical History: Supraventricular Tachycardia (SVT) Additional Past Medical History / Comment(s): pt states she has had 3 attacks of SVT in last ten years History of Any Multi-Drug Resistant Organisms: None Reported Past Surgical History: Section, Tonsillectomy Additional Past Surgical History / Comment(s): cardiac ablation Past Anesthesia/Blood Transfusion Reactions: No Reported Reaction Past Psychological History: No Psychological Hx Reported Smoking Status: Never smoker Past Alcohol Use History: None Reported Past Drug Use History: None Reported - Past Family History Mother Family Medical History: No Reported History General Exam - General Exam Comments Initial Comments: Constitutional: NAD, AOX3, Pt has pleasant affect. HEENT: NC/AT, trachea midline, neck supple, no lymphadenopathy. Posterior pharynx non erythematous, without exudates. External ears appear normal, without discharge. Mucous membranes moist. Eyes PERRLA, EOM intact. There is no scleral icterus. No pallor noted. Cardiopulmonary: RRR, no murmurs, rubs or gallops, no JVD noted. Lungs CTAB in anterior and posterior medina. No peripheral edema. Maxillary sinus pressure reproducible upon palpation. Abdominal exam: Abdomen soft and non-distended. Abdomen non-tender to palpation in all 4 quadrants. Bowel sounds active in LLQ. No hepatosplenomegaly. No ecchymosis Neuro: CN II-XII grossly intact. No nuchal rigidity. MSK: No posterior calf tenderness bilaterally, homans sign negative bilaterally. Posterior tibialis and radial pulse +2 bilaterally. Sensation intact in upper and lower extremities. Full active ROM in upper and lower extremities, 5/5 stregnth. Limitations: no limitations Course Vital Signs 10/18/18 10/18/18 10/19/18 20:04 22:36 01:26 Temperature 98 F 98.2 F Pulse Rate 100 88 78 Respiratory 20 16 16 Rate Blood Pressure 131/88 106/67 109/81 O2 Sat by Pulse 100 99 99 Oximetry Medical Decision Making - Medical Decision Making 33-year-old female patient with past history of SVT status post ablation thousand 16 presents ED for chief complaint of waxing and waning heart palpitations for 2 days as well as some chest pain which began approximately 1.5 hours prior to presentation. Patient describes the pain as a sharp pleuritic pain in her L breast region. She also has separate complaint of approximately 2 weeks of sinus congestion, sinus pressure maxillary sinus. Patient denies any shortness of breath abdominal pain nausea vomiting diarrhea, states that she is not . Denies other complaints. Patient vital signs stable, afebrile. Physical exam displayed reproducible maxillary sinus pressure. Laboratory investigations are non-impressive CBC. CMP non-impressive. D-dimer negative correlation studies within normal limits. Troponin less than diagnostic cut off 3. UA negative, hCG negative. EKG not concerning for acute ischemia. Chest x-ray displayed no acute process. Patient not experiencing active pain. Shared decision making with patient as well as attending provider Dr. Gonzalez. Patient likely Observation for serial Troponins and Will Follow up with Cardiology Tomorrow. Case discussed and pt seen by Dr. Gonzalez. - Lab Data Result diagrams: 10/18/18 20:42 10/18/18 20:42 Lab Results 10/18/18 10/18/18 10/18/18 Range/Units 20:42 20:42 20:42 WBC 9.3 (3.8-10.6) k/uL RBC 4.19 (3.80-5.40) m/uL Hgb 12.7 (11.4-16.0) gm/dL Hct 39.3 (34.0-46.0) % MCV 93.9 (80.0-100.0) fL MCH 30.3 (25.0-35.0) pg MCHC 32.3 (31.0-37.0) g/dL RDW 13.1 (11.5-15.5) % Plt Count 257 (150-450) k/uL Neutrophils % 71 % Lymphocytes % 20 % Monocytes % 6 % Eosinophils % 1 % Basophils % 1 % Neutrophils # 6.6 (1.3-7.7) k/uL Lymphocytes # 1.8 (1.0-4.8) k/uL Monocytes # 0.6 (0-1.0) k/uL Eosinophils # 0.1 (0-0.7) k/uL Basophils # 0.1 (0-0.2) k/uL PT 9.7 (9.0-12.0) sec INR 0.9 (<1.2) APTT 24.8 (22.0-30.0) sec D-Dimer <0.17 (<0.60) mg/L FEU Sodium 140 (137-145) mmol/L Potassium 4.3 (3.5-5.1) mmol/L Chloride 105 (98-107) mmol/L Carbon Dioxide 28 (22-30) mmol/L Anion Gap 7 mmol/L BUN 12 (7-17) mg/dL Creatinine 0.50 L (0.52-1.04) mg/dL Est GFR (CKD-EPI)AfAm >90 (>60 ml/min/1.73 sqM) Est GFR (CKD-EPI)NonAf >90 (>60 ml/min/1.73 sqM) Glucose 78 (74-99) mg/dL Calcium 9.9 (8.4-10.2) mg/dL Magnesium 2.1 (1.6-2.3) mg/dL Total Bilirubin 0.3 (0.2-1.3) mg/dL AST 23 (14-36) U/L ALT 12 (9-52) U/L Alkaline Phosphatase 56 (38-126) U/L Troponin I (0.000-0.034) ng/mL Total Protein 7.4 (6.3-8.2) g/dL Albumin 4.6 (3.5-5.0) g/dL Amylase 67 (30-110) U/L Urine Color Urine Appearance (Clear) Urine pH (5.0-8.0) Ur Specific [place] (1.001-1.035) Urine Protein (Negative) Urine Glucose (UA) (Negative) Urine Ketones (Negative) Urine Blood (Negative) Urine Nitrite (Negative) Urine Bilirubin (Negative) Urine Urobilinogen (<2.0) mg/dL Ur Leukocyte Esterase (Negative) Urine RBC (0-5) /hpf Urine WBC (0-5) /hpf Ur Squamous Epith Cells (0-4) /hpf Urine Bacteria (None) /hpf Urine Mucus (None) /hpf Urine HCG, Qual (Not Detectd) 10/18/18 10/18/18 10/18/18 Range/Units 20:42 20:50 20:50 WBC (3.8-10.6) k/uL RBC (3.80-5.40) m/uL Hgb (11.4-16.0) gm/dL Hct (34.0-46.0) % MCV (80.0-100.0) fL MCH (25.0-35.0) pg MCHC (31.0-37.0) g/dL RDW (11.5-15.5) % Plt Count (150-450) k/uL Neutrophils % % Lymphocytes % % Monocytes % % Eosinophils % % Basophils % % Neutrophils # (1.3-7.7) k/uL Lymphocytes # (1.0-4.8) k/uL Monocytes # (0-1.0) k/uL Eosinophils # (0-0.7) k/uL Basophils # (0-0.2) k/uL PT (9.0-12.0) sec INR (<1.2) APTT (22.0-30.0) sec D-Dimer (<0.60) mg/L FEU Sodium (137-145) mmol/L Potassium (3.5-5.1) mmol/L Chloride (98-107) mmol/L Carbon Dioxide (22-30) mmol/L Anion Gap mmol/L BUN (7-17) mg/dL Creatinine (0.52-1.04) mg/dL Est GFR (CKD-EPI)AfAm (>60 ml/min/1.73 sqM) Est GFR (CKD-EPI)NonAf (>60 ml/min/1.73 sqM) Glucose (74-99) mg/dL Calcium (8.4-10.2) mg/dL Magnesium (1.6-2.3) mg/dL Total Bilirubin (0.2-1.3) mg/dL AST (14-36) U/L ALT (9-52) U/L Alkaline Phosphatase (38-126) U/L Troponin I <0.012 (0.000-0.034) ng/mL Total Protein (6.3-8.2) g/dL Albumin (3.5-5.0) g/dL Amylase (30-110) U/L Urine Color Light Yellow Urine Appearance Clear (Clear) Urine pH 6.0 (5.0-8.0) Ur Specific [place] 1.007 (1.001-1.035) Urine Protein Negative (Negative) Urine Glucose (UA) Negative (Negative) Urine Ketones Negative (Negative) Urine Blood Negative (Negative) Urine Nitrite Negative (Negative) Urine Bilirubin Negative (Negative) Urine Urobilinogen <2.0 (<2.0) mg/dL Ur Leukocyte Esterase Small H (Negative) Urine RBC 1 (0-5) /hpf Urine WBC 3 (0-5) /hpf Ur Squamous Epith Cells 1 (0-4) /hpf Urine Bacteria Moderate H (None) /hpf Urine Mucus Rare H (None) /hpf Urine HCG, Qual Not Detected (Not Detectd) 10/18/18 10/18/18 Range/Units 22:35 23:49 WBC (3.8-10.6) k/uL RBC (3.80-5.40) m/uL Hgb (11.4-16.0) gm/dL Hct (34.0-46.0) % MCV (80.0-100.0) fL MCH (25.0-35.0) pg MCHC (31.0-37.0) g/dL RDW (11.5-15.5) % Plt Count (150-450) k/uL Neutrophils % % Lymphocytes % % Monocytes % % Eosinophils % % Basophils % % Neutrophils # (1.3-7.7) k/uL Lymphocytes # (1.0-4.8) k/uL Monocytes # (0-1.0) k/uL Eosinophils # (0-0.7) k/uL Basophils # (0-0.2) k/uL PT (9.0-12.0) sec INR (<1.2) APTT (22.0-30.0) sec D-Dimer (<0.60) mg/L FEU Sodium (137-145) mmol/L Potassium (3.5-5.1) mmol/L Chloride (98-107) mmol/L Carbon Dioxide (22-30) mmol/L Anion Gap mmol/L BUN (7-17) mg/dL Creatinine (0.52-1.04) mg/dL Est GFR (CKD-EPI)AfAm (>60 ml/min/1.73 sqM) Est GFR (CKD-EPI)NonAf (>60 ml/min/1.73 sqM) Glucose (74-99) mg/dL Calcium (8.4-10.2) mg/dL Magnesium (1.6-2.3) mg/dL Total Bilirubin (0.2-1.3) mg/dL AST (14-36) U/L ALT (9-52) U/L Alkaline Phosphatase (38-126) U/L Troponin I 0.017 0.020 (0.000-0.034) ng/mL Total Protein (6.3-8.2) g/dL Albumin (3.5-5.0) g/dL Amylase (30-110) U/L Urine Color Urine Appearance (Clear) Urine pH (5.0-8.0) Ur Specific [place] (1.001-1.035) Urine Protein (Negative) Urine Glucose (UA) (Negative) Urine Ketones (Negative) Urine Blood (Negative) Urine Nitrite (Negative) Urine Bilirubin (Negative) Urine Urobilinogen (<2.0) mg/dL Ur Leukocyte Esterase (Negative) Urine RBC (0-5) /hpf Urine WBC (0-5) /hpf Ur Squamous Epith Cells (0-4) /hpf Urine Bacteria (None) /hpf Urine Mucus (None) /hpf Urine HCG, Qual (Not Detectd) - EKG Data -: EKG Interpreted by Me (and dr gonzalez) EKG Comments: Ventricular rate 95,. Full 138, curiously 6, QT/QTC 366/459. Normal sinus rhythm, nonspecific T-wave abnormality. no concern for acute ischemia. Disposition Clinical Impression: Chest pain, atypical Disposition: ADMITTED IP TO THIS HOSP Condition: Fair Instructions (If sedation given, give patient instructions): Noncardiac Chest Pain (ED) Additional Instructions: Patient to adhere to previously discussed treatment plan and will take medicat ion(s) as directed. Patient to follow up with PCP in 1-2 days. Patient to return to ED if symptoms do not improve. Prescriptions: Amoxicillin/Potassium Clav [Augmentin 875-125 Tablet] 1 each PO Q12HR #20 tab Is patient prescribed a controlled substance at d/c from ED?: No Referrals: Luanne Anand MD [Primary Care Provider] - 1-2 days
[2018-10-19] MEDS ORDERED: NITROGLYCERIN SL TABS 0.4 MG TAB SUBLINGUAL PRN (02:13)
[2018-10-19 04:40] VITALS: BMI 21.3
[2018-10-19 07:33] VITALS: RESP 16; TEMP 97.9
--- NOTE | 2018-10-19 10:44 | P.CRDCN ---
History of Present Illness History of present illness: This is a pleasant 33-year-old female past medical history significant for supraventricular tachycardia status post [place] [address] Marshall. We have been asked to see her in consultation secondary to chest pain. She states for the previous 2 weeks she has been having a cough, nasal drainage of pleuritic type pain to the left scapular region. Yesterday while at work she started having a pain in left precordial region that was moving from the front to the back described as sharp in nature and worse with cough, deep inspiration or movement of her torso. The pain was intermittent in nature. No associated shortness of breath, dizziness, nausea, vomiting or palpitations. EKG reveals sinus mechanism with nonspecific T-wave abnormalities. Chest x-ray is negative for an acute cardiopulmonary process. Laboratory data reviewed, WBC 9.3, hemoglobin 12.7, platelets 257, d-dimer less than 0.17, sodium 140, potassium 4.3, creatinine 0.5, magnesium 2.1, cardiac enzymes negative 4. She takes no daily cardiac medications. At the time of my exam: CONSTITUTIONAL: Denies fever. Denies chills. EYES: Denies blurred vision. Denies vision changes. Denies eye pain. EARS, NOSE, MOUTH & THROAT: Denies headache. Denies sore throat. Denies ear pain. CARDIOVASCULAR: Complains of pleuritic chest pain. Denies shortness of breath. Denies orthopnea. Denies PND. Denies palpitations. RESPIRATORY: Complains of cough. GASTROINTESTINAL: Denies abdominal pain. Denies diarrhea. Denies constipation. Denies nausea. Denies vomiting. MUSCULOSKELETAL: Denies myalgias. INTEGUMENTARY: Denies pruitis. Denies rash. NEUROLOGIC: Denies numbness. Denies tingling. Denies weakness. PSYCHIATRIC: Denies anxiety. Denies depression. ENDOCRINE: Denies fatigue. Denies weight change. Denies polydipsia. Denies polyurina. GENITOURINARY: Denies burning, hematuria or urgency with micturation. HEMATOLOGIC: Denies history of anemia. Denies bleeding. Blood pressure 100/65 heart rate 78 afebrile maintaining oxygen saturation on room air GENERAL: This is a 33-year-old female in no apparent distress at the time of my examination. HEENT: Head is atraumatic, normocephalic. Pupils are equal, round. Sclerae anicteric. Conjunctivae are clear. Mucous membranes of the mouth are moist. Neck is supple. There is no jugular venous distention. No carotid bruit is heard. LUNGS: Clear to auscultation no wheezes, rales or rhonchi. No chest wall tenderness is noted on palpation or with deep breathing. HEART: Regular rate and rhythm without murmurs, rubs or gallops. S1 and S2 heard. ABDOMEN: Soft, nontender. Bowel sounds are heard. No organomegaly noted. EXTREMITIES: No evidence of peripheral edema and no calf tenderness noted. VASCULAR: Radial and dorsalis pedis pulses palpated, no evidence of clubbing. NEUROLOGIC: Patient is awake, alert and oriented x3. ASSESSMENT Chest pain, pleuritic in nature in setting of upper respiratory illness. An acute coronary event has been ruled out. History of SVT s/p ablation 2016 PLAN An acute coronary event has been ruled out. Obtain 2D echocardiogram and doppler study to assess cardiac structure and function. Perform stress echocardiogram to assess for stress induced ischemia. Check CRP and ESR. Thank you kindly for this consultation. Nurse Practitioner note has been reviewed, I agree with a documented findings and plan of care. Patient was seen and examined. Past Medical History Past Medical History: Supraventricular Tachycardia (SVT) Additional Past Medical History / Comment(s): pt states she has had 3 attacks of SVT in last ten years History of Any Multi-Drug Resistant Organisms: None Reported Past Surgical History: Ablation, Section, Tonsillectomy Additional Past Surgical History / Comment(s): cardiac ablation (2016), c- section 6 months ago. Past Anesthesia/Blood Transfusion Reactions: No Reported Reaction Past Psychological History: No Psychological Hx Reported Smoking Status: Never smoker Past Alcohol Use History: None Reported Past Drug Use History: None Reported - Past Family History Mother Family Medical History: No Reported History Medications and Allergies Home Medications Medication Instructions Recorded Confirmed Type Multivitamins, Thera [Multivitamin 1 tab PO DAILY 08/09/18 10/18/18 History (formulary)] Amoxicillin/Potassium Clav 1 each PO Q12HR #20 tab 10/18/18 Rx [Augmentin 875-125 Tablet] Fluticasone Nasal [place] [Flonase 2 spr EA NOSTRIL DAILY 05/16/19 05/16/19 History Nasal [place]] Allergies Allergy/AdvReac Type Severity Reaction Status Date / Time adhesive tape Allergy Rash/Hives Verified 10/18/18 20:48 Physical Exam Vitals: Vital Signs Temp Pulse Pulse Resp BP BP Pulse Ox 10/19/18 08:00 78 16 10/19/18 07:38 97 10/19/18 07:20 97.9 F 78 16 100/65 97 10/19/18 05:16 98.1 F 75 18 119/85 99 10/19/18 04:16 76 18 113/76 99 10/19/18 04:00 17 10/19/18 03:36 17 10/19/18 01:26 98.2 F 78 16 109/81 99 10/18/18 22:36 88 16 106/67 99 10/18/18 20:04 98 F 100 20 131/88 100 Intake and Output 10/18/18 10/19/18 10/19/18 22:59 06:59 14:59 Other: Voiding Method Toilet Toilet # Voids 1 Weight 56.245 kg Results 10/18/18 20:42 10/18/18 20:42 Cardiac Enzymes 10/18/18 10/18/18 10/18/18 Range/Units 20:42 20:42 22:35 AST 23 (14-36) U/L Troponin I <0.012 0.017 (0.000-0.034) ng/mL 10/18/18 10/19/18 Range/Units 23:49 03:58 AST (14-36) U/L Troponin I 0.020 <0.012 (0.000-0.034) ng/mL Coagulation 10/18/18 Range/Units 20:42 PT 9.7 (9.0-12.0) sec APTT 24.8 (22.0-30.0) sec CBC 10/18/18 Range/Units 20:42 WBC 9.3 (3.8-10.6) k/uL RBC 4.19 (3.80-5.40) m/uL Hgb 12.7 (11.4-16.0) gm/dL Hct 39.3 (34.0-46.0) % Plt Count 257 (150-450) k/uL Comprehensive Metabolic Panel 10/18/18 Range/Units 20:42 Sodium 140 (137-145) mmol/L Potassium 4.3 (3.5-5.1) mmol/L Chloride 105 (98-107) mmol/L Carbon Dioxide 28 (22-30) mmol/L BUN 12 (7-17) mg/dL Creatinine 0.50 L (0.52-1.04) mg/dL Glucose 78 (74-99) mg/dL Calcium 9.9 (8.4-10.2) mg/dL AST 23 (14-36) U/L ALT 12 (9-52) U/L Alkaline Phosphatase 56 (38-126) U/L Total Protein 7.4 (6.3-8.2) g/dL Albumin 4.6 (3.5-5.0) g/dL Current Medications Generic Name Dose Route Start Last Admin Trade Name Freq PRN Reason Stop Dose Admin Aspirin 325 mg 10/20/18 09:00 Aspirin PO DAILY WARREN Nitroglycerin 0.4 mg 10/19/18 02:13 Nitrostat SUBLINGUAL Q5M PRN Chest Pain Intake and Output 10/18/18 10/19/18 10/19/18 22:59 06:59 14:59 Other: Voiding Method Toilet Toilet # Voids 1 Weight 56.245 kg 10/18/18 20:42 10/18/18 20:42
--- NOTE | 2018-10-19 11:42 | ECHOF ---
Referral Reason: MEASUREMENTS -------- HEIGHT: 162.6 cm WEIGHT: 56.2 kg BP: 100/65 RVIDd: 3.3 cm (< 3.3) IVSd: 0.8 cm (0.6 - 1.1) LVIDd: 3.7 cm (3.9 - 5.3) LVPWd: 0.9 cm (0.6 - 1.1) IVSs: 1.0 cm LVIDs: 2.7 cm LVPWs: 1.1 cm LAESV Index (A-L): 9.56 ml/m Ao Diam: 2.4 cm (2.0 - 3.7) AV Cusp: 1.6 cm (1.5 - 2.6) LA Diam: 1.9 cm (2.7 - 3.8) MV EXCURSION: 10.716 mm (> 18.000) MV EF SLOPE: 96 mm/s (70 - 150) EPSS: 0.5 cm MV E Manny: 0.74 m/s MV DecT: 158 ms MV A Manny: 0.51 m/s MV E/A Ratio: 1.46 RAP: 5.00 mmHg RVSP: 19.52 mmHg FINDINGS -------- Sinus rhythm. This was a technically adequate study. The left ventricular size is normal. Left ventricular wall thickness is normal. Overall left vent ricular systolic function is normal with, an EF between 60 - 65 %. The right ventricle is normal in size. The left atrial size is normal. Normal LA size by volume 22+/-6 ml/m2. The right atrium is normal in size. Interatrial and interventricular septum intact. The aortic valve is trileaflet and appears structurally normal. There is no evidence of aortic regu rgitation. The mitral valve is normal. Trace tricuspid regurgitation present. There is no evidence of pulmonary hypertension. The right ventricular systolic pressure, as measured by Doppler, is 19.52mmHg. Pulmonic valve appears structurally normal. The aortic root size is normal. Normal inferior vena cava with normal inspiratory collapse consistent with estimated right atrial pre ssure of 5 mmHg. The pericardium is normal. CONCLUSIONS -------- 1. Sinus rhythm. 2. This was a technically adequate study. 3. The left ventricular size is normal. 4. Left ventricular wall thickness is normal. 5. Overall left ventricular systolic function is normal with, an EF between 60 - 65 %. 6. The right ventricle is normal in size. 7. The left atrial size is normal. 8. Normal LA size by volume 22+/-6 ml/m2. 9. The right atrium is normal in size. 10. Interatrial and interventricular septum intact. 11. The aortic valve is trileaflet and appears structurally normal. 12. There is no evidence of aortic regurgitation. 13. The mitral valve is normal. 14. Trace tricuspid regurgitation present. 15. There is no evidence of pulmonary hypertension. 16. The right ventricular systolic pressure, as measured by Doppler, is 19.52mmHg. 17. Pulmonic valve appears structurally normal. 18. The aortic root size is normal. 19. Normal inferior vena cava with normal inspiratory collapse consistent with estimated right atrial pressure of 5 mmHg. 20. The pericardium is normal. MENTAL HYGIENE CONSULTANT: Jamee Bob RDCS
[2018-10-19 11:45] VITALS: BP 109/75; PULSE 98
--- NOTE | 2018-10-19 12:57 | ECHOS ---
STRESS ECHOCARDIOGRAM DATE OF SERVICE: 10/19/2018 INDICATIONS: Chest pain. MEDICATIONS: Flonase. BASELINE HEART RATE: 76 BASELINE BLOOD PRESSURE: 111/69 MAXIMUM HEART RATE: 176 MAXIMUM BLOOD PRESSURE: 131/73 85% MPHR: 161 100% MPHR: 189 METS: 10.7 MAXIMUM STAGE REACHED: III TOTAL EXERCISE TIME: 9 minutes CLINICAL INFORMATION: Patient was exercised for a total period of 9 minutes. A peak heart rate of 176 was achieved. Maximum blood pressure of 131/73 mmHg was noted. Resting EKG shows normal sinus rhythm with normal WI interval and QRS duration and normal ST-T waves. No ST- segment depression suggestive of ischemia is noted. Occasional PVCs were noted. The baseline echocardiographic images revealed normal left ventricular chamber size with normal left ventricular systolic function. In the immediate postexercise period, normal increase in the wall thickness and contractility is noted. FINAL IMPRESSION: This stress echocardiographic study is negative for stress-induced ischemia. Occasional PVCs were noted. Patient's exercise tolerance was normal. MMODL / IJN: [id number] /
[2018-10-19] MEDS ORDERED: IBUPROFEN 400 MG TAB PO STA (13:26)
--- NOTE | 2018-10-19 14:10 | P.PN ---
Progress Note - Text Stable for discharge from a cardiac perspective. Follow up with Dr. Marshall upon discharge.
--- NOTE | 2018-10-19 16:49 | P.HPIM ---
History of Present Illness Patient is a pleasant 33-year-old female with history of super ventricular tachycardia and ablation in the past came in with complaints of chest pain sharp in nature radiating to the back class only for a few seconds and it radiates between the shoulder blades moderate severity no associated diaphoresis or shortness of breath associated with that. Patient the chest pain is nonpleuritic not associated with food. Doesn't increase with deep breathing. Patient may have pleuropericarditis patient had a preceding upper respiratory infection going on for about the 2 weeks area discharge patient has viral rhinitis sinusitis, with this swollen Pharyngitis all of which appear to be viral with clear discharge from the nose which appears to have contributed to pleuropericarditis. EKG showed some nonspecific ST-T wave changes actually or T-wave inversions in some leads. Patient underwent stress test which was negative. Cleared by cardiology. Patient had some acid reflux last night because of which I'll discharge her on Zantac and naproxen for a week. For symptoms doesn't get better may consider right upper quadrant ultrasound looking for cholelithiasis patient still has her gallbladder. D-dimer is negative chest x-ray did not show pneumonia Review of Systems REVIEW OF SYSTEMS: CONSTITUTIONAL: No fever, no malaise, no fatigue. HEENT: No recent visual problems or hearing problems. CARDIOVASCULAR: No orthopnea, PND, no palpitations, no syncope. PULMONARY: No shortness of breath, no cough, no hemoptysis. GASTROINTESTINAL: No diarrhea, no nausea, no vomiting, no abdominal pain. NEUROLOGICAL: No headaches, no weakness, no numbness. HEMATOLOGICAL: Denies any bleeding or petechiae. GENITOURINARY: Denies any burning micturition, frequency, or urgency. MUSCULOSKELETAL/RHEUMATOLOGICAL: Denies any joint pain, swelling, or any muscle pain. ENDOCRINE: Denies any polyuria or polydipsia. The rest of the 14-point review of systems is negative. Past Medical History Past Medical History: Supraventricular Tachycardia (SVT) Additional Past Medical History / Comment(s): pt states she has had 3 attacks of SVT in last ten years History of Any Multi-Drug Resistant Organisms: None Reported Past Surgical History: Ablation, Section, Tonsillectomy Additional Past Surgical History / Comment(s): cardiac ablation (2016), c- section 6 months ago. Past Anesthesia/Blood Transfusion Reactions: No Reported Reaction Past Psychological History: No Psychological Hx Reported Smoking Status: Never smoker Past Alcohol Use History: None Reported Past Drug Use History: None Reported - Past Family History Mother Family Medical History: No Reported History Medications and Allergies Home Medications Medication Instructions Recorded Confirmed Type Multivitamins, Thera [Multivitamin 1 tab PO DAILY 08/09/18 10/18/18 History (formulary)] Amoxicillin/Potassium Clav 1 each PO Q12HR #20 tab 10/18/18 Rx [Augmentin 875-125 Tablet] Fluticasone Nasal [place] [Flonase 2 spr EA NOSTRIL DAILY 10/18/18 10/18/18 History Nasal [place]] Naproxen [Naprosyn] 500 mg PO Q12HR #14 tab 10/19/18 Rx Ranitidine HCl [Zantac] 150 mg PO BID #14 tab 10/19/18 Rx Allergies Allergy/AdvReac Type Severity Reaction Status Date / Time adhesive tape Allergy Rash/Hives Verified 10/18/18 20:48 Physical Exam Vitals: Vital Signs Temp Pulse Pulse Resp BP BP Pulse Ox 10/19/18 12:00 98 16 10/19/18 11:44 97.9 F 98 16 109/75 99 10/19/18 08:00 78 16 10/19/18 07:38 97 10/19/18 07:20 97.9 F 78 16 100/65 97 10/19/18 05:16 98.1 F 75 18 119/85 99 10/19/18 04:16 76 18 113/76 99 10/19/18 04:00 17 10/19/18 03:36 17 10/19/18 01:26 98.2 F 78 16 109/81 99 10/18/18 22:36 88 16 106/67 99 10/18/18 20:04 98 F 100 20 131/88 100 Intake and Output 10/19/18 10/19/18 10/19/18 06:59 14:59 22:59 Other: Voiding Method Toilet Toilet # Voids 1 PHYSICAL EXAMINATION: GENERAL: The patient is alert and oriented x3, not in any acute distress. Well developed, well nourished. HEENT: Pupils are round and equally reacting to light. EOMI. No scleral icterus. No conjunctival pallor. Normocephalic, atraumatic. She does have pharyngeal erythema color, swollen uvula. No thyromegaly. CARDIOVASCULAR: S1 and S2 present. No murmurs, rubs, or gallops. PULMONARY: Chest is clear to auscultation, no wheezing or crackles. ABDOMEN: Soft, nontender, nondistended, normoactive bowel sounds. No palpable organomegaly. MUSCULOSKELETAL: No joint swelling or deformity. EXTREMITIES: No cyanosis, clubbing, or pedal edema. NEUROLOGICAL: Gross neurological examination did not reveal any focal deficits. SKIN: No rashes. Results CBC & Chem 7: 10/18/18 20:42 10/18/18 20:42 Labs: Abnormal Lab Results - Last 24 Hours (Table) 10/18/18 10/18/18 10/19/18 Range/Units 20:42 20:50 12:10 Creatinine 0.50 L (0.52-1.04) mg/dL C-Reactive Protein 24.9 H (<10.0) mg/L Ur Leukocyte Esterase Small H (Negative) Urine Bacteria Moderate H (None) /hpf Urine Mucus Rare H (None) /hpf Thrombosis Risk Factor Assmnt - Choose All That Apply Each Factor Represents 1 point: or Thrombosis Risk Factor Assessment Total Risk Factor Score: 1 Thrombosis Risk Factor Assessment Level: Low Risk Assessment and Plan Plan: -Chest pain: Appears to be secondary to pleural pericarditis nonsteroidal anti- inflammatory cell as mentioned above along with the GI prophylaxis considering her acid reflux last night. Patient underwent stress test ruled out acute current syndromes and unstable angina. stress test was negative. -Viral sinusitis, rhinopharyngitis: Conservative measures. Encouraged her to drink water and do not believe patient will require any antibiotics at this time -History of SVT status post ablation no evidence of recurrent episodes at this time. Patient will be discharged today.
--- NOTE | 2018-10-19 16:49 | P.DS ---
Providers Date of admission: 10/19/18 03:13 Attending physician: Sandy Chen Consults: 10/19/18 02:13 Consult Physician Urgent Consulting Provider: [facility] Consult Reason/Comments: chest pain Do you want consulting provider notified?: Yes Primary care physician: Luanne Anand [facility] Course: As mentioned in HPI Patient Condition at Discharge: Fair Plan - Discharge Summary Discharge Rx Participant: Yes New Discharge Prescriptions: New Amoxicillin/Potassium Clav [Augmentin 875-125 Tablet] 1 each PO Q12HR #20 tab Naproxen [Naprosyn] 500 mg PO Q12HR #14 tab Ranitidine HCl [Zantac] 150 mg PO BID #14 tab No Action Multivitamins, Thera [Multivitamin (formulary)] 1 tab PO DAILY Fluticasone Nasal [place] [Flonase Nasal [place]] 2 spr EA NOSTRIL DAILY Discharge Medication List Multivitamins, Thera [Multivitamin (formulary)] 1 tab PO DAILY 08/09/18 [History] Amoxicillin/Potassium Clav [Augmentin 875-125 Tablet] 1 each PO Q12HR #20 tab 10/18/18 [Rx] Fluticasone Nasal [place] [Flonase Nasal [place]] 2 spr EA NOSTRIL DAILY 10/18/18 [H istory] Naproxen [Naprosyn] 500 mg PO Q12HR #14 tab 10/19/18 [Rx] Ranitidine HCl [Zantac] 150 mg PO BID #14 tab 10/19/18 [Rx] Follow up Appointment(s)/Referral(s): Luanne Anand MD [Primary Care Provider] - 3 Days Patient Instructions/Handouts: Noncardiac Chest Pain (ED) Activity/Diet/Wound Care/Special Instructions: Patient to adhere to previously discussed treatment plan and will take medication(s) as directed. Patient to follow up with PCP in 1-2 days. Patient to return to ED if symptoms do not improve. Discharge Disposition: HOME SELF-CARE
[2018-10-20] MEDS ORDERED: ASPIRIN 325 MG TAB PO SCH (09:00)
== END 2018-10-19 15:28 | disposition home or self-care (01) ==
LOC: EC 20:02 → 1SOBS 10-19 03:13
PROVIDERS: ADMIT Hospitalist; ATTEND Hospitalist
DX: R07.89 Other chest pain (principal); R00.2 Palpitations; J32.0 Chronic maxillary sinusitis; J00 Acute nasopharyngitis [common cold]; K21.9 Gastro-esophageal reflux disease without esophagitis; Z79.899 Other long term (current) drug therapy; Z91.048 Other nonmedicinal substance allergy status; Z86.79 Personal history of other diseases of the circulatory system
CPT/HCPCS: 96360; 96361; 99285; 36415; 94760; 93005; 93306; 93351; 85379; 80053; 85652; 82150; 83735; 84484 ×2; 85025; 85610; 85730; 86140; 81001; 81025; 71046; G0378

== ENCOUNTER 2019-07-26 14:11 | Emergency (ER) | payer OTHER ==
[2019-07-26 14:21] VITALS: BP 133/83; PULSE 96; RESP 18; TEMP 97.9
[2019-07-26] MEDS ORDERED: FAMOTIDINE 20 MG TAB PO STA (14:53)
[2019-07-26] MEDS ORDERED: predniSONE 50 MG TAB PO STA (14:53)
--- NOTE | 2019-07-26 14:54 | ED ---
General Adult HPI - General Chief complaint: Allergic Reaction Stated complaint: Facial Swelling Time Seen by Provider: 07/26/19 14:34 Source: patient, RN notes reviewed Mode of arrival: ambulatory Limitations: no limitations - History of Present Illness Initial comments: Patient is a pleasant 34-year-old female presenting to the emergency department with concerns regarding facial swelling. Onset of symptoms was 4 days ago, symptoms were a little bit worse this morning. Patient did have similar symptoms around a month ago that resolved. Patient is unclear why symptoms could be occurring. Patient only takes multivitamin, no other medications. Patient states no significant discomfort only mild irritation. No difficulty in breathing. No tongue swelling. Facial swelling is mostly left upper lip. - Related Data Home Medications Medication Instructions Recorded Confirmed Multivitamins, Thera [Multivitamin 1 tab PO DAILY 08/09/18 10/18/18 (formulary)] Fluticasone Nasal [place] [Flonase 2 spr EA NOSTRIL DAILY 10/18/18 10/18/18 Nasal [place]] Previous Rx's Medication Instructions Recorded Amoxicillin/Potassium Clav 1 each PO Q12HR #20 tab 10/18/18 [Augmentin 875-125 Tablet] Naproxen [Naprosyn] 500 mg PO Q12HR #14 tab 10/19/18 Ranitidine HCl [Zantac] 150 mg PO BID #14 tab 10/19/18 predniSONE [Deltasone] 2 tab PO DAILY #8 tab 07/26/19 Allergies Allergy/AdvReac Type Severity Reaction Status Date / Time adhesive tape Allergy Rash/Hives Verified 07/26/19 14:18 Review of Systems ROS Statement: Those systems with pertinent positive or pertinent negative responses have been documented in the HPI. ROS Other: All systems not noted in ROS Statement are negative. Constitutional: Denies: fever Eyes: Denies: eye pain ENT: Denies: ear pain Respiratory: Denies: cough, dyspnea Cardiovascular: Denies: chest pain Endocrine: Denies: fatigue Gastrointestinal: Denies: abdominal pain Genitourinary: Denies: dysuria Musculoskeletal: Denies: back pain Skin: Denies: rash Neurological: Denies: weakness Past Medical History Past Medical History: Supraventricular Tachycardia (SVT) Additional Past Medical History / Comment(s): pt states she has had 3 attacks of SVT in last ten years History of Any Multi-Drug Resistant Organisms: None Reported Past Surgical History: Ablation, Section, Tonsillectomy Additional Past Surgical History / Comment(s): cardiac ablation (2016), c- section 6 months ago. Past Anesthesia/Blood Transfusion Reactions: No Reported Reaction Past Psychological History: No Psychological Hx Reported Smoking Status: Never smoker Past Alcohol Use History: None Reported Past Drug Use History: None Reported - Past Family History Mother Family Medical History: No Reported History General Exam Limitations: no limitations General appearance: alert, in no apparent distress Head exam: Present: normocephalic Eye exam: Present: normal appearance, PERRL ENT exam: Present: other (Mild swelling left upper lip. Mild edema of the uvula. Normal speech pattern. No tongue edema.) Neck exam: Present: normal inspection Respiratory exam: Present: normal lung sounds bilaterally Cardiovascular Exam: Present: regular rate, normal rhythm GI/Abdominal exam: Present: soft. Absent: distended, tenderness Extremities exam: Present: normal inspection Neurological exam: Present: alert Psychiatric exam: Present: normal affect, normal mood Skin exam: Present: normal color Course Vital Signs 07/26/19 14:18 Temperature 97.9 F Pulse Rate 96 Respiratory 18 Rate Blood Pressure 133/83 O2 Sat by Pulse 99 Oximetry Medical Decision Making - Medical Decision Making Patient has symptoms of angioedema, secondary to recurrence. Patient is advised that she will benefit from follow-up with ALLERGY testing and further evaluation. Patient will be provided steroids as well as prescription. Patient states she is taking Benadryl at home. Disposition Clinical Impression: Angioedema Disposition: HOME SELF-CARE Condition: Stable Instructions (If sedation given, give patient instructions): Angioedema (ED) Additional Instructions: Hold multivitamins at this time. Continue [id number] Benadryl. [id number] Pepcid twice daily for the next 5 days. Prescription for steroids. Prescription sent to [facility] pharmacy Prescriptions: predniSONE [Deltasone] 2 tab PO DAILY #8 tab Is patient prescribed a controlled substance at d/c from ED?: No Referrals: Luanne Anand MD [Primary Care Provider] - 1-2 days Time of Disposition: 15:00
== END 2019-07-26 15:23 | disposition home or self-care (01) ==
LOC: EC 14:11
DX: T78.3XXA Angioneurotic edema, initial encounter (principal); Z91.048 Other nonmedicinal substance allergy status; Z86.79 Personal history of other diseases of the circulatory system; Z98.890 Other specified postprocedural states
CPT/HCPCS: 99283; J7512

== ENCOUNTER 2019-08-04 14:53 | Emergency (ER) | payer OTHER ==
[2019-08-04] MEDS ORDERED: diphenhydrAMINE 50 MG/ML 1 ML VIAL IVP STA (15:14)
[2019-08-04] MEDS ORDERED: KETOROLAC 30 MG/ML 1 ML VIAL IVP STA ×2 (15:14→15:51)
[2019-08-04] MEDS ORDERED: ONDANSETRON 4 MG/2 ML VIAL IVP STA (15:14)
[2019-08-04] MEDS ORDERED: SODIUM CHLORIDE 0.9% 1,000 ML IV ONE (15:14)
[2019-08-04] MEDS ORDERED: MORPHINE SULFATE 2 MG/ML SYRINGE IVP STA (15:19)
--- NOTE | 2019-08-04 15:46 | CT ---
EXAMINATION TYPE: CT brain wo con DATE OF EXAM: 08/04/2019 COMPARISON: CT brain August 09, 2018 HISTORY: migraine X [address] DLP: 1070.4 mGycm. Automated Exposure Control for Dose Reduction was Utilized. TECHNIQUE: CT scan of the head is performed without contrast. FINDINGS: There is no acute intracranial hemorrhage, mass effect, or midline shift identified. The ventricles and sulci are within normal limits in size. Abebe-white matter differentiation is maintain ed. Stable slightly low-lying cerebellar tonsils without greater than 5 mm inferior distention sagit oliverio image 30. The globes are intact and the visualized sinuses are clear. IMPRESSION: No acute intracranial hemorrhage or midline shift. No significant change from prior.
[2019-08-04 16:27] VITALS: RESP 18
[2019-08-04 16:37] LABS: Basophils % (A) 1 %; Eosinophils # (A) 0.1 k/uL (0-0.7); Eosinophils % (A) 1 %; HCT 42.8 % (34.0-46.0); HGB 13.9 gm/dL (11.4-16.0); Lymphocytes # (A) 1.7 k/uL (1.0-4.8); Lymphocytes % (A) 30 %; MCH 31.4 pg (25.0-35.0); MCHC 32.5 g/dL (31.0-37.0); MCV 96.6 fL (80.0-100.0); Mean Platelet Volume 7.5; Monocytes # (A) 0.4 k/uL (0-1.0); Monocytes % (A) 6 %; Neutrophils # (A) 3.5 k/uL (1.3-7.7); Neutrophils % (A) 61 %; Platelet Count 208 k/uL (150-450); RBC 4.43 m/uL (3.80-5.40); WBC 5.8 k/uL (3.8-10.6)
[2019-08-04 16:43] LABS: ALT 17 U/L (4-34); AST 19 U/L (14-36); African American GFR (CKD) >90 (>60 ml/min/1.73 sqM); Albumin 4.2 g/dL (3.5-5.0); Alkaline Phosphatase 35 U/L (38-126); Anion Gap 6 mmol/L; Blood Urea Nitrogen 14 mg/dL (7-17); Calcium 8.4 mg/dL (8.4-10.2); Carbon Dioxide 27 mmol/L (22-30); Chloride 105 mmol/L (98-107); Glucose 75 mg/dL (74-99); Non-African American GFR(CKD) >90 (>60 ml/min/1.73 sqM); Potassium 3.8 mmol/L (3.5-5.1); Sodium 138 mmol/L (137-145); Total Bilirubin 0.3 mg/dL (0.2-1.3); Total Protein 6.9 g/dL (6.3-8.2)
--- NOTE | 2019-08-04 16:45 | XR ---
EXAMINATION TYPE: XR chest 2V DATE OF EXAM: 08/04/2019 COMPARISON: Chest x-ray October 18, 2018. HISTORY: Lightheadedness and weakness. TECHNIQUE: Frontal and lateral views of the chest are obtained. FINDINGS: There is no focal air space opacity, pleural effusion, or pneumothorax seen. The cardiac silhouette size is within normal limits. The osseous structures are intact. IMPRESSION: No acute cardiopulmonary process. No significant change from prior
--- NOTE | 2019-08-04 17:13 | ED ---
Headache HPI - General Chief Complaint: Headache Stated Complaint: Migraine Time Seen by Provider: 08/04/19 14:57 Mode of arrival: ambulatory Limitations: no limitations - History of Present Illness Initial Comments: 34-year-old female history of chronic migraines who sees migraine specialist presents emergency room for headache 3 days. Patient states she has a headache 3-4 days she states that the day before yesterday she felt like she was going to have a migraine. Patient states it began while she was at work. The next day patient states is sharp aching in nature. Patient denies any radiation. Patient states she does have some slight photophobia. The patient denies any nausea or vomiting. Patient states that she also feels like she is lightheaded. Patient states that she does not feel like the room is spinning. Patient states that she has had these lightheaded episodes frequently. Patient denies any chest pain or shortness of breath. Patient denies any vision loss denies any sensation deficits or weakness of the UE or LE. Patient denies neck pain,sti ffness. Denies speech changes, or facial droop, Denies fevers, recent URI infection. Previous MRA/MRA within the last 18 month. No known aneurysym. Patient states that the lightheaded sensation with the headache was what was worrying her. She states that the headache dulled down after a dose of her migraine meds but did not go completely away. remaining ROS (-) - Related Data Home Medications Medication Instructions Recorded Confirmed Multivitamins, Thera [Multivitamin 1 tab PO DAILY 08/09/18 10/18/18 (formulary)] Fluticasone Nasal Jadwin [Flonase 2 spr EA NOSTRIL DAILY 10/18/18 10/18/18 Nasal Jadwin] Previous Rx's Medication Instructions Recorded Amoxicillin/Potassium Clav 1 each PO Q12HR #20 tab 10/18/18 [Augmentin 875-125 Tablet] Naproxen [Naprosyn] 500 mg PO Q12HR #14 tab 10/19/18 Ranitidine HCl [Zantac] 150 mg PO BID #14 tab 10/19/18 predniSONE [Deltasone] 2 tab PO DAILY #8 tab 07/26/19 Meclizine [Antivert] 25 mg PO BID 7 Days #14 tab 08/04/19 Ondansetron Odt [Zofran Odt] 4 mg PO Q8HR PRN 7 Days #21 tab 08/04/19 Allergies Allergy/AdvReac Type Severity Reaction Status Date / Time adhesive tape Allergy Rash/Hives Verified 08/04/19 14:56 Review of Systems ROS Statement: Those systems with pertinent positive or pertinent negative responses have been documented in the HPI. ROS Other: All systems not noted in ROS Statement are negative. Past Medical History Past Medical History: Supraventricular Tachycardia (SVT) Additional Past Medical History / Comment(s): pt states she has had 3 attacks of SVT in last ten years History of Any Multi-Drug Resistant Organisms: None Reported Past Surgical History: Ablation, Section, Tonsillectomy Additional Past Surgical History / Comment(s): cardiac ablation (2016), c- section 6 months ago. Past Anesthesia/Blood Transfusion Reactions: No Reported Reaction Past Psychological History: No Psychological Hx Reported Smoking Status: Never smoker Past Alcohol Use History: None Reported Past Drug Use History: None Reported - Past Family History Mother Family Medical History: No Reported History General Exam - General Exam Comments Initial Comments: General: The patient is awake and alert, in no distress Eye: + 3mm pupils are equal, round and reactive to light, extra-ocular movements are intact. No APD. No nystagmus. There is normal conjunctiva bilaterally. No signs of icterus. Ears, nose, mouth and throat: There are moist mucous membranes and no oral lesions. Neck: The neck is supple, there is no tenderness or JVD. Cardiovascular: There is a regular rate and rhythm. No murmur, rub or gallop is appreciated. Respiratory: Lungs are clear to auscultation, respirations are non-labored, breath sounds are equal. No wheezes, stridor, rales, or rhonchi. Musculoskeletal: Normal ROM, no tenderness. Strength 5/5. Sensation intact. Radial pulses equal bilaterally 2+. Neurological: A&O x 3. CN II-XII intact, memory intact to immediately, intermediate and emt intermediate recall. Able to follow simple verbal. Able to name a common object . High quality, labial (pa) and lingual (la) speech. Low quality posterior pharynx/larynx (ga) voice sounds. Able to express general knowledge (days in a week). No hemineglect or inattention noted. Finger agnosia (-) and spatially oriented (identified L index finger touched R shoulder with L index finger). Light touch sensation present over the face, chest, abdomen, back, UE bilaterally, and LE bilaterally. Able to localize point during point localization b/l and extinction. No visible bulk atrophy, hypertrophy, fasciculations, or myoclonus of the UE or LE b/l. Full PROM in UE and LE b/l. Bilateral muscle strength 5/5 for the following muscles: deltoid, biceps, triceps, brachioradialis, wrist extensors/flexor, hip flexor, hip abductors/adductors, hamstrings, quadriceps, feet dorsiflexors/plantar flexors. Finger to nose, finger to the examiners finger, and heel to yeboah coordinated and accurate b/l. Gait is coordinated and even in stride with tandem. (-) pronator drift. No nuchal rigidity. Skin: Skin is warm and dry and no rashes or lesions are noted. Psychiatric: Cooperative, appropriate mood & affect, normal judgment. Limitations: no limitations Course Vital Signs 08/04/19 08/04/19 08/04/19 14:54 16:25 18:48 Temperature 97.5 F L 97.9 F Pulse Rate 117 H 91 88 Respiratory 20 18 18 Rate Blood Pressure 142/87 115/75 109/78 O2 Sat by Pulse 100 100 99 Oximetry Medical Decision Making - Medical Decision Making 34yo appear presenting today for chief complaint of headache lightheadedness. No sensation that the room is spinning. Patient states that she has had these spells in the past. It did improve with meclizine she states they are aggravated by rapid head movement. Patient is also complaining migraine 2 days and has history of chronic migraines. Headache was relieved with pain medications, and lightheaded/dizziness was improved after meclizine. Patient's laboratory studies stable EKG no evidence of SVT or other acute conduction abnormalities. Patient had no focal neurological examination findings. CT of the brain was obtained revealing no acute abnormalities at this time. Patient was given option of transfer to neurology facility for observation if she did not feel that the symptoms are improved. Patient states that she is beginning to feel a lot better and would like to go home and follow-up with her neurologist outpatient I discussed the case with a provider we're agreeable to this care plan discharge at this time - Lab Data Result diagrams: 08/04/19 16:17 08/04/19 16:17 Lab Results 08/04/19 08/04/19 08/04/19 Range/Units 16:17 16:17 16:17 WBC 5.8 (3.8-10.6) k/uL RBC 4.43 (3.80-5.40) m/uL Hgb 13.9 (11.4-16.0) gm/dL Hct 42.8 (34.0-46.0) % MCV 96.6 (80.0-100.0) fL MCH 31.4 (25.0-35.0) pg MCHC 32.5 (31.0-37.0) g/dL RDW 12.0 (11.5-15.5) % Plt Count 208 (150-450) k/uL Neutrophils % 61 % Lymphocytes % 30 % Monocytes % 6 % Eosinophils % 1 % Basophils % 1 % Neutrophils # 3.5 (1.3-7.7) k/uL Lymphocytes # 1.7 (1.0-4.8) k/uL Monocytes # 0.4 (0-1.0) k/uL Eosinophils # 0.1 (0-0.7) k/uL Basophils # 0.0 (0-0.2) k/uL Sodium 138 (137-145) mmol/L Potassium 3.8 (3.5-5.1) mmol/L Chloride 105 (98-107) mmol/L Carbon Dioxide 27 (22-30) mmol/L Anion Gap 6 mmol/L BUN 14 (7-17) mg/dL Creatinine 0.59 (0.52-1.04) mg/dL Est GFR (CKD-EPI)AfAm >90 (>60 ml/min/1.73 sqM) Est GFR (CKD-EPI)NonAf >90 (>60 ml/min/1.73 sqM) Glucose 75 (74-99) mg/dL Calcium 8.4 (8.4-10.2) mg/dL Total Bilirubin 0.3 (0.2-1.3) mg/dL AST 19 (14-36) U/L ALT 17 (4-34) U/L Alkaline Phosphatase 35 L (38-126) U/L Troponin I <0.012 (0.000-0.034) ng/mL Total Protein 6.9 (6.3-8.2) g/dL Albumin 4.2 (3.5-5.0) g/dL - EKG Data EKG Comments: Ventricular rate 93 bpm, NJ interval 132 ms, QRS duration 82 ms, QT/QTC 370/[address] elevation or depression. Disposition Clinical Impression: Headache Disposition: HOME SELF-CARE Condition: Good Instructions (If sedation given, give patient instructions): Acute Headache (ED) Additional Instructions: Please use medication as discussed. Please follow-up with family doctor in the next 2 days, call neurologist tomorrow. Please return to emergency room if the symptoms increase or worsen or for any other concerns. Prescriptions: Meclizine [Antivert] 25 mg PO BID 7 Days #14 tab Ondansetron Odt [Zofran Odt] 4 mg PO Q8HR PRN 7 Days #21 tab PRN Reason: Nausea Is patient prescribed a controlled substance at d/c from ED?: No Referrals: Luanne Anand MD [Primary Care Provider] - 1-2 days Time of Disposition: 18:51
[2019-08-04] MEDS ORDERED: MECLIZINE 12.5 MG TAB PO STA (17:35)
[2019-08-04] MEDS ORDERED: METOCLOPRAMIDE 5 MG/ML 2 ML VIAL IVP STA (17:37)
[2019-08-04 18:49] VITALS: BP 109/78; PULSE 88; TEMP 97.9
== END 2019-08-04 19:06 | disposition home or self-care (01) ==
LOC: EC 14:53
DX: G43.909 Migraine, unspecified, not intractable, without status migrainosus (principal); R42 Dizziness and giddiness; Z98.890 Other specified postprocedural states; Z91.048 Other nonmedicinal substance allergy status
CPT/HCPCS: 36415; 93005; 80053; 84484; 85025; 71046; 70450; 99284; 96374; 96375 ×4; 96361 ×3; J1200; J2765; J2405; J1885; J2270

== ENCOUNTER → 2019-08-30 | Outpatient (CLI) | payer OTHER ==
--- NOTE | 2019-08-30 10:06 | MR ---
EXAMINATION TYPE: MR cervical spine wo con DATE OF EXAM: 08/30/2019 COMPARISON: None HISTORY: 34-year-old female Migraines, Dizziness, Pain and stiffness in neck TECHNIQUE: Multiplanar, multisequence images of the cervical spine were acquired. FINDINGS: No craniocervical junction appear mildly, predental space widening, or prevertebral soft tissue swell ing. Some straightening of the normal cervical lordosis but with preserved alignment. Mild degenerative intervertebral disc desiccation. Minimal posterior disc bulges particularly towards the right. There is a tiny right paracentral annular fissure noted at C3-C4. No suspicious bone marrow placement. No focal disc herniation or significant spinal canal stenosis. Mild facet arthropathy lower cervical spine. No significant neuroforaminal stenosis. Normal course, caliber, and signal intensity of the cervical spinal cord. No prevertebral or paravertebral soft tissue abnormality. IMPRESSION: 1. Mild degenerative intervertebral disc desiccation. Tiny disc bulges towards the right and a tiny r ight paracentral annular fissure at C3-C4. 2. Mild facet arthropathy lower cervical spine. 3. No focal disc herniation or significant spinal canal or neuroforaminal stenosis.
--- NOTE | 2019-08-30 11:01 | MR ---
EXAMINATION TYPE: MR brain wo/w con MRI acoustic without and with contrast DATE OF EXAM: 08/30/2019 COMPARISON: Outside exam 11/02/2018 HISTORY: 34-year-old female Migraines, Dizziness, Pain and stiffness in neck TECHNIQUE: Multiplanar, multisequence images of the brain and brainstem were acquired before and aft er administration of 5.5 mL IV Gadavist. Diffusion weighted imaging is performed. Additional multip lanar, multisequence images centered at the temporal bones. FINDINGS: No evidence for acute infarction, hemorrhage, mass, mass effect, midline shift, herniation, effacemen t of basal cisterns, or extra-axial fluid collection. The ventricles and sulci are age-appropriate. 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 Major intracranial flow vo ids are intact. T2/FLAIR weighted sequences show no white matter signal abnormality. Midline structures demonstrate normal morphology. The craniocervical junction is normal. Post contrast images demonstrate no evidence of pathologic enhancement. Dural venous sinuses are pat ent. There is no cerebellopontine angle mass. Brainstem and skull base abnormalities are not seen. Post contrast images demonstrate no evidence of pathologic enhancement in the posterior cranial kai a or the internal auditory canals. There is no abnormal enhancement of labyrinths. Trace mucosal thickening maxillary sinuses and ethmoid air cells. Globes appear intact. IMPRESSION: 1. No intracranial abnormality seen. 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 2. Unremarkable acoustic MRI.
== END | disposition home or self-care (01) ==
LOC: RADMRIMAIN 07:12
PROVIDERS: ATTEND Physician Assistant Medical
DX: M50.30 Other cervical disc degeneration, unspecified cervical region (principal); M50.20 Other cervical disc displacement, unspecified cervical region; M47.892 Other spondylosis, cervical region; Q28.3 Other malformations of cerebral vessels
CPT/HCPCS: 70553; 72141

== ENCOUNTER 2019-10-28 21:12 | Emergency (ER) | payer OTHER ==
[2019-10-28 21:20] VITALS: TEMP 98.6
--- NOTE | 2019-10-28 22:00 | XR ---
EXAMINATION TYPE: XR hand complete LT DATE OF EXAM: 10/28/2019 COMPARISON: NONE HISTORY: Pain. TECHNIQUE: 3 views FINDINGS: Metacarpals are intact. I see no fracture nor dislocation. Joint spaces are normal. IMPRESSION: Negative left hand exam. No fracture seen.
--- NOTE | 2019-10-28 22:01 | XR ---
EXAMINATION TYPE: XR wrist complete LT DATE OF EXAM: 10/28/2019 COMPARISON: NONE HISTORY: Pain TECHNIQUE: 4 views FINDINGS: Carpal bones appear normal. Joint spaces are normal. I see no fracture nor dislocation. Sca phoid appears normal. The metacarpals are intact. IMPRESSION: Normal left wrist exam.
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
[2019-10-28 23:13] VITALS: BP 125/84; PULSE 62; RESP 16
== END 2019-10-28 23:13 | disposition home or self-care (01) ==
LOC: EC 21:12
DX: S69.92XA Unspecified injury of left wrist, hand and finger(s), initial encounter (principal); Z79.51 Long term (current) use of inhaled steroids; Z91.048 Other nonmedicinal substance allergy status; V87.8XXA Person injured in other specified noncollision transport accidents involving motor vehicle (traffic), initial encounter; Y93.53 Activity, golf; Y92.39 Other specified sports and athletic area as the place of occurrence of the external cause
CPT/HCPCS: 99283